=== PATIENT | male | born 1965 | race Hispanic/Latino ===

== ENCOUNTER → 2023-09-13 | Day surgery (SDC) | payer OTHER ==
[~2023-09-13] MED LIST: FAMOTIDINE20 MG PO; FENTANYL CITRATE/PF 100MCG/2 ML INJ ONE; OMEPRAZOLE40 MG PO; PROPOFOL IV EMULSION 10 MG/ML 20 ML VIAL ONE; PROPOFOL IV EMULSION 10 MG/ML 50 ML VIAL IV ONE
[2023-09-13] MEDS: LACTATED RINGER'S 1,000 ML ONE (13:38)
[2023-09-13 16:54] VITALS: TEMP 97
[2023-09-13 17:20] VITALS: BP 125/81; PULSE 65; RESP 13; O2SAT 98
== END | disposition home or self-care (01) ==
LOC: OR 12:58
PROVIDERS: ATTEND Internal Medicine Gastroenterology
DX: K29.70 Gastritis, unspecified, without bleeding (principal); K63.5 Polyp of colon; K31.89 Other diseases of stomach and duodenum; K20.90 Esophagitis, unspecified without bleeding; K21.9 Gastro-esophageal reflux disease without esophagitis; R19.5 Other fecal abnormalities; K59.00 Constipation, unspecified; K64.8 Other hemorrhoids; Z71.3 Dietary counseling and surveillance; Z71.89 Other specified counseling; E66.9 Obesity, unspecified; Z01.810 Encounter for preprocedural cardiovascular examination; Z68.32 Body mass index [BMI] 32.0-32.9, adult
CPT/HCPCS: 43239; 43251; 45385; 93005; C9113; J2704 ×2; J3010; J7121; 45384